=== PATIENT | male | born 1995 | race Caucasian/White ===

== ENCOUNTER 2016-10-17 23:06 | Emergency (ER) | payer BC, OTHER ==
[~2016-10-17] VITALS: Ht 180.3 cm; Wt 65.8 kg
[~2016-10-17 23:06] MED LIST: AMOX500C2 PO; AMOX875T2 PO; CLOT15CR4 TP; DIPH1TAB25 PO; HYDR-757 PO; PERM60CR4 TP; PRD20T PO; SULF-222 PO
--- OUTSIDE RECORDS SUMMARY | 2016-10-17 23:12 | XMS REPORT | Continuity of Care Document ---
Author Author [facility] Organization [facility] Address Unknown Phone Unavailable Care Team Providers [facility] Director Name Role Phone NO, LOCAL PHYSICIAN PCP Unavailable Insurance Providers Payer Name Policy Number Subscriber Name Relationship [employer] [id number] Duran Ortiz 19 Self / Same As Patient Advance Directives Directive Response Recorded Date/Time Advance Directives No 05/11/15 3:27am Resuscitation Status Full Code 05/11/15 3:27am Problems Medical Problems Problem Onset Date Status Abscess Unknown Active Diarrhea Unknown Active Diarrhea Unknown Active Pharyngitis, acute Unknown Active Medications Medication Dose Route Sig Days/Qty Instructions Order Date Discontinued Date Status Amoxicillin 500 Mg PO THREE TIMES A DAY 21 Qty 05/11/15 Active Social History Social History Problem Response Recorded Date/Time Alcohol Use Denies Use 05/11/2015 3:27am Recreational Drug Use No 05/11/2015 3:27am Recent Foreign Travel No 05/11/2015 3:27am Recent Infectious Disease Exposure No 05/11/2015 3:27am Sexually Transmitted Disease No 05/11/2015 3:27am HIV/AIDS No 05/11/2015 3:27am Smoking Status Current Everyday Smoker 05/11/2015 3:27am Query Response Start Date Stop Date Smoking Status Current Everyday Smoker Hospital Discharge Instructions No hospital discharge instructions. Plan of Care No plan of care. Functional Status No functional status results. Allergies, Adverse Reactions, Alerts Allergen Type Severity Reaction Status Last Updated No Known Drug Allergies Active 12/20/14 Immunizations Name Given Type Tetanus Booster (TDap) Less than 5yrs Historical Vital Signs Acute Vital Signs Vital Response Date/Time Temperature (Fahrenheit) 98.0 degrees F (97.6 - 99.5) Temperature (Calculated Celsius) 36.30043 degrees C (36.4 - 37.5) Temperature Source Temporal Pulse Rate (Adolescent 12-19yrs) 72 bpm (56 - 106) Respiratory Rate (Adolescent 12-19yrs) 18 bpm (15 - 20) Blood Pressure / Blood Pressure Systolic (Adolescent 12-19yrs) 119 mm Hg (115 - 120) Pain Pain Intensity 10 Height (Feet) 5 feet Height (Inches) 8 inches Height (Calculated Centimeters) 172.408563 cm Weight (Pounds) 140 pounds Weight (Calculated Kilograms) 63.666401 kilograms Calculated BMI 21.28 Results No known relevant diagnostic tests, laboratory data and/or discharge summary. Procedures No known history of procedures. Encounters Encounter Location Date/Time Departed Emergency Room [facility] 05/11/15 3:20am Recent Diagnosis
[2016-10-17] MEDS ORDERED: RX-ONDANSETRON 4 MG ODT (ZOFRAN) PPK #4 PO STA (23:31)
[2016-10-17] MEDS ORDERED: RX-HYOSCYAMINE 0.125 MG SL (LEVSIN) PPK#6 SL STA (23:31)
[2016-10-17] MEDS ORDERED: HYOS0.1283 SL (23:34)
[2016-10-17] MEDS ORDERED: ONDA4TAB8 PO (23:34)
--- NOTE | 2016-10-17 23:35 | ED GI ---
General Chief Complaint: Abdominal/GI Problems Stated Complaint: SORE THROAT,VOMITING,DIARRHEA Nursing Triage Note: c/o emesis x 2(once early this morning and once on monday) reports diarrhea. reports was sent home from work. patient reports he has been able to eat and drink today without problem Sepsis Screen: No Definite Risk Source of Information: Patient History of Present Illness Time Seen By Provider: 23:20 Initial Comments PT STATES HE HAS BEEN SICK SINCE MONDAY VOMITED X 1 ON MONDAY, AND AGAIN TODAY AROUND NOON BEGAN HAVING DIARRHEA LAST PM AND HAS HAD 10 EPISODES SINCE THEN--NO BLACK/ BLOODY/TARRY STOOLS C/O MID ABDOMINAL PAIN NO FEVER NO URINARY SYMPTOMS C/O SORE THROAT TOLD ME HAS HAS NOT EATEN OR DRANK ANYTHING EXCEPT A LITTLE WATER AND A SODA TODAY--TOLD RN HE HAD BEEN EATING AND DRINKING WELL / NORMAL ALL DAY TODAY PT HAS BEEN AT WORK AT [employer] SINCE 1500 TODAY ( SHIFT ENDS AT 0130) --GOT SENT HOME JUST PRIOR TO ARRIVAL AND IS HERE FOR A WORK NOTE. GIRLFRIEND HAS BEEN ILL WITH THE SAME NO SUSPICIOUS FOODS PCP: NONE Allergies and Home Medications Allergies Coded Allergies: No Known Drug Allergies (Unverified , 12/20/14) Home Medications Hyoscyamine Sulfate 0.125 Mg Tab.subl #10 1-2 TAB SL Q4H Prescribed by: SAHIL OLEARY on 10/17/16 2334 Ondansetron 4 Mg Tab.rapdis #10 4 MG PO Q4H Prescribed by: SAHIL OLEARY on 10/17/16 2334 Review of Systems Constitutional: no symptoms reported Respiratory: No Symptoms Reported Cardiovascular: No Symptoms Reported Gastrointestinal: See HPI Abdominal Pain Diarrhea Nausea Vomiting Genitourinary: No Symptoms Reported Musculoskeletal: no symptoms reported Skin: no symptoms reported Psychiatric/Neurological: No Symptoms Reported Endocrine: No Symptoms Reported Hematologic/Lymphatic: No Symptoms Reported Past Ldtbdkr-Rmuwjz-Rvzghj Hx Patient Social History Alcohol Use: Denies Use Recreational Drug Use: No Smoking Status: Current Everyday Smoker (1 PPD) Type Used: Cigarettes Recent Foreign Travel: No Contact w/Someone Who Travel: No Recent Infectious Disease Expo: No Recent Hopitalizations: No Physical Abuse Screen: No Sexual Abuse: No Immunizations Up To Date Tetanus Booster (TDap): Less than 5yrs PED Vaccines UTD: Yes Seasonal Allergies Seasonal Allergies: No Surgeries HX Surgeries: No Respiratory Hx Respiratory Disorders: No Cardiovascular Hx Cardiac Disorders: No Neurological Hx Neurological Disorders: No Reproductive System Hx Reproductive Disorders: No Sexually Transmitted Disease: No HIV/AIDS: No Genitourinary Hx Genitourinary Disorders: No Gastrointestinal Hx Gastrointestinal Disorders: No Musculoskeletal Hx Musculoskeletal Disorders: No Endocrine Hx Endocrine Disorders: No HEENT HX ENT Disorders: No Cancer Hx Cancer: No Psychosocial Hx Psychiatric Problems: No Integumentary HX Skin/Integumentary Disorder: No Blood Transfusions Hx Blood Disorders: No Adverse Reaction to a Blood Tr: No Family Medical History Significant Family History: No Pertinent Family Hx Physical Exam Vital Signs VS - Last 72 Hours, by Label 10/17/16 23:17 Temp 98.2 Pulse 72 Resp 18 B/P 136/79 Pulse Ox 99 Capillary Refill : Less Than 3 Seconds General Appearance: no apparent distress other (DOES NOT APPEAR ILL OR TO BE IN ANY DISCOMFORT. WALKS UP RIGHT AND MOVES WITHOUT DIFFICULTY) thin HEENT: PERRL/EOMI normal ENT inspection TMs normal pharynx normalNo pharyngeal erythema, No tonsillar exudate Neck: non-tender full range of motion supple normal inspectionNo lymphadenopathy (R) Respiratory: normal breath sounds no respiratory distress no accessory muscle use Cardiovascular: normal peripheral pulses regular rate, rhythm no edema no JVD no murmur Gastrointestinal: normal bowel sounds soft no organomegaly no pulsatile massNo distended, No guarding, No rebound, tenderness (MILD PERIUMBILICAL TENDERNESS)No hernia, No mass Extremities: normal inspection Back: normal inspection no CVA tenderness Neurologic/Psychiatric: desk representative II-XII nml as tested no motor/sensory deficits alert normal mood/affect oriented x 3 Skin: normal color warm/dry Progress/Results/Core Measures Results/Orders My Orders Orders-SAHIL OLEARY DO Rx-Hyoscyamine Tab (Rx-Levsin Sl) (10/17/16 23:31) Rx-Ondansetron Po (Rx-Zofran Po) (10/17/16 23:31) Vital Signs/I&O Vital Sign - Last 12Hours 10/17/16 23:17 Temp 98.2 Pulse 72 Resp 18 B/P 136/79 Pulse Ox 99 Blood Pressure Mean: 98 Progress Note : Progress Note NO SYMPTOMS DURING ER STAY Departure Impression Impression: Primary Impression: Gastroenteritis Disposition: 01 HOME, SELF-CARE Condition: Stable Departure-Patient Inst. Referrals: NO,LOCAL PHYSICIAN (PCP/Family) Primary Care Physician Patient Instructions: Viral Gastroenteritis, Adult (DC) Add. Discharge Instructions: CLEAR LIQUIDS--WATER, BROTH, JELLO, GATORADE BRATS DIET--BANANAS, RICE, APPLESAUCE, TOAST, SALTINES FOLLOW UP WITH OF [facility] IN 1-2 DAYS IF NO BETTER RETURN TO ER IF WORSE All discharge instructions reviewed with patient and/or family. Voiced understanding. Scripts Hyoscyamine Sulfate (Levsin-Sl)0.125 Mg Tab.subl1-2 Tab SL Q4H Abdominal Pain # 10 TAB Prov:SAHIL OLEARY DO 10/17/16 Ondansetron (Zofran Odt)4 Mg Tab.rapdis4 Mg PO Q4H Nausea/Vomiting #10 TAB Prov:SAHIL OLEARY DO 10/17/16 Work/School Note: Local Medical Staff Listing, Work Release Form Date Seen in the Emergency Department: Oct 17, 2016 Return to Work: Oct 18, 2016 Restrictions: No Restrictions SAHIL OLEARY DO Oct 17, 2016 23:34
[2016-10-17 23:37] VITALS: BP 136/79
== END 2016-10-17 23:37 | disposition home or self-care (01) ==
LOC: EDUNIT# 23:06 → ER 23:09
DX: K52.9 Noninfective gastroenteritis and colitis, unspecified (principal); R11.2 Nausea with vomiting, unspecified; F17.210 Nicotine dependence, cigarettes, uncomplicated
CPT/HCPCS: 99283

== ENCOUNTER 2017-03-07 23:24 | Emergency (ER) | payer BC ==
[~2017-03-07] VITALS: Ht 180.3 cm; Wt 65.8 kg
[~2017-03-07 23:24] MED LIST changes: +HYOS0.1283 SL; +ONDA4TAB8 PO
[2017-03-08] MEDS ORDERED: LACTATED RINGERS 1,000 ML IV ONE
[2017-03-08] MEDS ORDERED: FAMOTIDINE 20MG/2ML IV (PEPCID) IV STA
--- NOTE | 2017-03-08 00:29 | ED General ---
General Chief Complaint: Abdominal/GI Problems Stated Complaint: DEHYDRATED Nursing Triage Note: C/O N/V/D AFTER DRINKING ETOH MONDAY NIGHT Nursing Sepsis Screen: No Definite Risk Source of Information: Patient Exam Limitations: No Limitations History of Present Illness Time Seen by Provider: 23:55 Initial Comments Here with report of dizziness and feeling dehydrated after drinking alcohol on Monday night for his birthday. He states that everyone kept buying him drinks and he got pretty drunk that night. He felt bad on Monday. On Monday he went to work and was dehydrated and dizzy and had to go home. He tried to go to work again today and was still dehydrated. He works in a hot environment. He states that he has not been unable to keep things down well since going out on Monday. Denies other specific pain or complaints aside from stomach upset.. Timing/Duration: 2-3 Days Severity: Moderate Modifying Factors: worse with Eating Associated Systoms: No Chest Pain, No Fever/Chills, Loss of Appetite, Nausea/ Vomiting, No Shortness of Air, No Weakness Allergies and Home Medications Allergies Coded Allergies: No Known Drug Allergies (Unverified , 12/20/14) Home Medications No Active Prescriptions or Reported Meds Constitutional: see HPI, No chills, No fever EENTM: no symptoms reported Respiratory: no symptoms reported Cardiovascular: no symptoms reported Gastrointestinal: nausea, vomiting Genitourinary: no symptoms reported Musculoskeletal: no symptoms reported Skin: no symptoms reported Psychiatric/Neurological: See HPI, Denies Weakness, Other (dizziness) All Other Systems Reviewed Negative Unless Noted: Yes Past Aeqvdcl-Mtlcsl-Dnjcgd Hx Patient Social History Alcohol Use: Occasionally Uses Recreational Drug Use: No Smoking Status: Current Everyday Smoker Type Used: Cigarettes Recent Foreign Travel: No Contact w/Someone Who Travel: No Recent Infectious Disease Expo: No Recent Hopitalizations: No Immunizations Up To Date Tetanus Booster (TDap): Less than 5yrs PED Vaccines UTD: Yes Seasonal Allergies Seasonal Allergies: No Surgeries HX Surgeries: No Respiratory Hx Respiratory Disorders: No Cardiovascular Hx Cardiac Disorders: No Neurological Hx Neurological Disorders: No Reproductive System Hx Reproductive Disorders: No Sexually Transmitted Disease: No HIV/AIDS: No Genitourinary Hx Genitourinary Disorders: No Gastrointestinal Hx Gastrointestinal Disorders: No Musculoskeletal Hx Musculoskeletal Disorders: No Endocrine Hx Endocrine Disorders: No HEENT HX ENT Disorders: No Cancer Hx Cancer: No Psychosocial Hx Psychiatric Problems: No Integumentary HX Skin/Integumentary Disorder: No Blood Transfusions Hx Blood Disorders: No Adverse Reaction to a Blood Tr: No Reviewed Nursing Assessment Reviewed/Agree w Nursing PMH: Yes Family Medical History Significant Family History: No Pertinent Family Hx Physical Exam Vital Signs Vital Sign - Last 12Hours 03/07/17 23:34 Temp 97.1 Pulse 73 Resp 18 B/P (MAP) 129/82 Pulse Ox 96 O2 Delivery Room Air Capillary Refill : Less Than 3 Seconds General Appearance: No Apparent Distress, WD/WN HEENT: PERRL/EOMI, Pharynx Normal Neck: Full Range of Motion, Non Tender, Supple Respiratory: Lungs Clear, Normal Breath Sounds Cardiovascular: Regular Rate, Rhythm, No Murmur Gastrointestinal: Non Tender, Soft Back: Normal Inspection, No CVA Tenderness, No Vertebral Tenderness Extremity: Non Tender, No Calf Tenderness Neurologic/Psychiatric: Alert, Oriented x3 Skin: Normal Color, Warm/Dry Progress/Results/Core Measures Results/Orders Lab Results Laboratory Tests Test 03/08/17 00:25 Range/Units White Blood Count 8.3 4.3-11.0 10^3/uL Red Blood Count 5.11 4.35-5.85 10^6/uL Hemoglobin 15.0 13.3-17.7 G/DL Hematocrit 44 40-54 % Mean Corpuscular Volume 87 80-99 FL Mean Corpuscular Hemoglobin 29 25-34 PG Mean Corpuscular Hemoglobin Concent 34 32-36 G/DL Red Cell Distribution Width 12.9 10.0-14.5 % Platelet Count 150 130-400 10^3/uL Mean Platelet Volume 11.8 H 7.4-10.4 FL Neutrophils (%) (Auto) 53 42-75 % Lymphocytes (%) (Auto) 37 12-44 % Monocytes (%) (Auto) 8 0-12 % Eosinophils (%) (Auto) 2 0-10 % Basophils (%) (Auto) 0 0-10 % Neutrophils # (Auto) 4.4 1.8-7.8 X 10^3 Lymphocytes # (Auto) 3.1 1.0-4.0 X 10^3 Monocytes # (Auto) 0.7 0.0-1.0 X 10^3 Eosinophils # (Auto) 0.1 0.0-0.3 10^3/uL Basophils # (Auto) 0.0 0.0-0.1 10^3/uL Sodium Level 142 135-145 MMOL/L Potassium Level 4.1 3.6-5.0 MMOL/L Chloride Level 110 H 98-107 MMOL/L Carbon Dioxide Level 22 21-32 MMOL/L Anion Gap 10 5-14 MMOL/L Blood Urea Nitrogen 18 7-18 MG/DL Creatinine 1.12 0.60-1.30 MG/DL Estimat Glomerular Filtration Rate > 60 BUN/Creatinine Ratio 16 Glucose Level 82 70-105 MG/DL Calcium Level 9.1 8.5-10.1 MG/DL Total Bilirubin 0.4 0.1-1.0 MG/DL Aspartate Amino Transf (AST/SGOT) 14 5-34 U/L Alanine Aminotransferase (ALT/SGPT) 12 0-55 U/L Alkaline Phosphatase 89 40-136 U/L Total Creatine Kinase 149 30-200 U/L Total Protein 6.7 6.4-8.2 G/DL Albumin 4.4 3.2-4.5 G/DL My Orders Orders - VIDHYA RODRIGUEZ MD Cbc With Automated Diff (03/08/17 00:00) Comprehensive Metabolic Panel (03/08/17 00:00) Creatine Kinase (03/08/17 00:00) Saline Lock/Iv-Start (03/08/17 00:00) Lactated Ringers (Lr 1000 Ml Iv Solution (03/08/17 00:00) Famotidine Injection (Pepcid Injection) (03/08/17 00:00) Medications Given in ED Current Medications Medications Dose Ordered Sig/Miguelito Route Start Time Stop Time Status Last Admin Dose Admin Lactated Ringer's 1,000 ml @ 0 mls/hr Q0M ONCE IV 03/08/17 00:00 03/08/17 00:03 DC 03/08/17 00:26 0 MLS/HR Vital Signs/I&O Vital Sign - Last 12Hours 03/07/17 23:34 Temp 97.1 Pulse 73 Resp 18 B/P (MAP) 129/82 Pulse Ox 96 O2 Delivery Room Air Blood Pressure Mean: 98 Progress Note : Progress Note Seen and evaluated. IV, labs, LR 1 L bolus and Pepcid 20 mg IV ordered. Monitor patient. 0108: Improved overall. Discharged home with return precautions. Patient verbalize understanding instructions and agreement with plan. Departure Impression Impression: Primary Impression: Dehydration Additional Impression: Nausea and vomiting Qualified Codes: R11.2 - Nausea with vomiting, unspecified Disposition: HOME, SELF-CARE Condition: Improved Departure-Patient Inst. Decision time for Depature: 01:08 Referrals: NO,LOCAL PHYSICIAN (PCP/Family) Primary Care Physician Patient Instructions: Dehydration, Adult (DC), Nausea and Vomiting, Adult (DC) Add. Discharge Instructions: All discharge instructions reviewed with patient and/or family. Voiced understanding. Clear liquid diet for the next 12 hours and then advance as tolerated. Avoid alcohol. You may take Pepcid or the generic famotidine 20 mg once or twice daily for the next several days and then as needed. Return for worse pain, weakness, breathing problems, vomiting or other concerns as needed. Scripts No Active Prescriptions or Reported Meds Work/School Note: Work Release Form Date Seen in the Emergency Department: Mar 07, 2017 Return to Work: Mar 08, 2017 Restrictions: No Restrictions VIDHYA RODRIGUEZ MD Mar 08, 2017 00:28
[2017-03-08 00:36] LABS: BASOPHILS % (AUTO) 0 % (0-10); EOSINOPHILS # (AUTO) 0.1 10^3/uL (0.0-0.3); EOSINOPHILS % (AUTO) 2 % (0-10); LYMPHOCYTES # (AUTO) 3.1 X 10^3 (1.0-4.0); LYMPHOCYTES % (AUTO) 37 % (12-44); MEAN CORPUSCULAR HEMOGLOBIN 29 PG (25-34); MEAN CORPUSCULAR HGB CONC 34 G/DL (32-36); MEAN CORPUSCULAR VOLUME 87 FL (80-99); MEAN PLATELET VOLUME 11.8 FL (7.4-10.4); MONOCYTES # (AUTO) 0.7 X 10^3 (0.0-1.0); MONOCYTES % (AUTO) 8 % (0-12); NEUTROPHILS # (AUTO) 4.4 X 10^3 (1.8-7.8); NEUTROPHILS % (AUTO) 53 % (42-75); PLATELET COUNT 150 10^3/uL (130-400); RED BLOOD COUNT 5.11 10^6/uL (4.35-5.85); RED CELL DISTRIBUTION WIDTH 12.9 % (10.0-14.5); WHITE BLOOD COUNT 8.3 10^3/uL (4.3-11.0)
[2017-03-08 00:53] LABS: ALANINE AMINOTRANSFERASE 12 U/L (0-55); ALBUMIN 4.4 G/DL (3.2-4.5); ANION GAP 10 MMOL/L (5-14); ASPARTATE AMINO TRANSFERASE 14 U/L (5-34); BILIRUBIN,TOTAL 0.4 MG/DL (0.1-1.0); BLOOD UREA NITROGEN 18 MG/DL (7-18); BUN/CREATININE RATIO 16; CALCIUM 9.1 MG/DL (8.5-10.1); CARBON DIOXIDE 22 MMOL/L (21-32); CHLORIDE 110 MMOL/L (98-107); CREATINE KINASE 149 U/L (30-200); CREATININE SERUM 1.12 MG/DL (0.60-1.30); GFR ESTIMATED > 60; GLUCOSE 82 MG/DL (70-105); POTASSIUM 4.1 MMOL/L (3.6-5.0); SODIUM 142 MMOL/L (135-145); TOTAL PROTEIN 6.7 G/DL (6.4-8.2)
[2017-03-08 01:09] VITALS: BP 118/57
== END 2017-03-08 01:08 | disposition home or self-care (01) ==
LOC: EDUNIT# 23:24 → ER 23:26
DX: E86.0 Dehydration (principal); R11.2 Nausea with vomiting, unspecified; F17.210 Nicotine dependence, cigarettes, uncomplicated; Z72.89 Other problems related to lifestyle
CPT/HCPCS: 36415; 80053; 82550; 85025

== ENCOUNTER → 2018-03-02 | Outpatient (CLI) | payer BC ==
--- NOTE | 2018-03-02 18:02 | Diagnostic Imaging Report ---
PROCEDURE: CT abdomen and pelvis without contrast. TECHNIQUE: Multiple contiguous axial images were obtained through the abdomen and pelvis without the use of intravenous contrast. INDICATION: Hematuria and lumbago. COMPARISON: None. FINDINGS: The lung bases are clear. The liver appears unremarkable. The gallbladder appears normal. There is no biliary dilatation. The pancreas, spleen, and adrenal glands appear unremarkable. The kidneys and ureters appear unremarkable. No urinary tract stone or obstructive uropathy is seen. There is prominent diffuse thickening of the bladder wall with some hazy stranding in the soft tissue adjacent to the bladder, highly suggestive of cystitis. Correlate clinically. The appendix appears normal. There is no evidence of bowel obstruction. There is no free fluid, free air, or adenopathy. The abdominal aorta appears normal in caliber. The osseous structures appear unremarkable. IMPRESSION: 1. The bladder is abnormal in appearance suggestive of cystitis. Correlate clinically. 2. No evidence of urinary tract calcification or obstructive uropathy. 3. No additional abnormality is demonstrated. Dictated by: Dictated on workstation # [id number]
[2018-03-02 18:21] LABS: BASOPHILS % (AUTO) 0 % (0-10); EOSINOPHILS # (AUTO) 0.1 10^3/uL (0.0-0.3); EOSINOPHILS % (AUTO) 1 % (0-10); HEMATOCRIT 44 % (40-54); HEMOGLOBIN 14.9 G/DL (13.3-17.7); LYMPHOCYTES # (AUTO) 1.8 X 10^3 (1.0-4.0); LYMPHOCYTES % (AUTO) 21 % (12-44); MEAN CORPUSCULAR HEMOGLOBIN 30 PG (25-34); MEAN CORPUSCULAR HGB CONC 34 G/DL (32-36); MEAN CORPUSCULAR VOLUME 87 FL (80-99); MEAN PLATELET VOLUME 11.7 FL (7.4-10.4); MONOCYTES % (AUTO) 11 % (0-12); NEUTROPHILS # (AUTO) 5.8 X 10^3 (1.8-7.8); NEUTROPHILS % (AUTO) 67 % (42-75); PLATELET COUNT 140 10^3/uL (130-400); RED BLOOD COUNT 5.02 10^6/uL (4.35-5.85); RED CELL DISTRIBUTION WIDTH 12.6 % (10.0-14.5); WHITE BLOOD COUNT 8.6 10^3/uL (4.3-11.0)
[2018-03-02 18:39] LABS: ALANINE AMINOTRANSFERASE 18 U/L (0-55); ALBUMIN 4.3 GM/DL (3.2-4.5); ALKALINE PHOSPHATASE 89 U/L (40-136); BILIRUBIN,TOTAL 0.5 MG/DL (0.1-1.0); BUN/CREATININE RATIO 14; CALCIUM 9.3 MG/DL (8.5-10.1); CARBON DIOXIDE 24 MMOL/L (21-32); CHLORIDE 109 MMOL/L (98-107); CREATININE SERUM 0.87 MG/DL (0.60-1.30); GFR ESTIMATED > 60; GLUCOSE 89 MG/DL (70-105); POTASSIUM 4.5 MMOL/L (3.6-5.0); SODIUM 142 MMOL/L (135-145); TOTAL PROTEIN 6.9 GM/DL (6.4-8.2)
== END ==
LOC: RAD 17:22
PROVIDERS: ATTEND Nurse Practitioner Family
DX: R31.9 Hematuria, unspecified (principal); M54.5 Low back pain; R50.9 Fever, unspecified
CPT/HCPCS: 36415; 74176; 80053; 85025; 86141; 87088; 87491; 87591

== ENCOUNTER 2018-04-02 18:20 | Emergency (ER) | payer BC ==
[~2018-04-02] VITALS: Ht 180.3 cm; Wt 65.8 kg
[2018-04-02] MEDS ORDERED: LACTATED RINGERS 1,000 ML IV ONE (18:36)
[2018-04-02] MEDS ORDERED: ONDANSETRON 4 MG/2 ML (SDV) Z0FRAN ONE (18:36)
[2018-04-02] MEDS ORDERED: ONDANSETRON 4 MG/2 ML (SDV) Z0FRAN IVP ONE (18:45)
[2018-04-02] MEDS ORDERED: LACTATED RINGERS 1,000 ML IV SCH (18:45)
--- NOTE | 2018-04-02 18:46 | ED General ---
General Stated Complaint: VOMITING/POSS DEHYDRATED Source of Information: Patient Exam Limitations: No Limitations History of Present Illness Date Seen by Provider: Apr 02, 2018 Time Seen by Provider: 18:42 Initial Comments To ER with c/o nausea vomiting diaphoresis and weakness. This started as he was walking into work this afternoon at [employer] where there is no air conditioning. Timing/Duration: 1-2 Days Severity: Moderate Associated Systoms: Diaphoresis, Nausea/Vomiting Allergies and Home Medications Allergies Coded Allergies: No Known Drug Allergies (Unverified , 12/20/14) Home Medications No Active Prescriptions or Reported Meds Patient Home Medication List Home Medication List Reviewed: Yes Review of Systems Constitutional: see HPI EENTM: see HPI Respiratory: no symptoms reported Cardiovascular: no symptoms reported Genitourinary: no symptoms reported Musculoskeletal: no symptoms reported Skin: no symptoms reported Psychiatric/Neurological: No Symptoms Reported Hematologic/Lymphatic: No Symptoms Reported Immunological/Allergic: no symptoms reported Past Wjflevs-Wygklu-Oyzclh Hx Patient Social History Alcohol Beverage of Choice: Beer Type Used: Cigarettes Recent Foreign Travel: No Contact w/Someone Who Travel: No Recent Hopitalizations: No Immunizations Up To Date Tetanus Booster (TDap): Less than 5yrs PED Vaccines UTD: Yes Seasonal Allergies Seasonal Allergies: No Past Medical History Surgeries: No Respiratory: No Cardiac: No Neurological: No Reproductive Disorders: No Sexually Transmitted Disease: No HIV/AIDS: No Genitourinary: No Gastrointestinal: No Musculoskeletal: No Endocrine: No HEENT: No Cancer: No Psychosocial: No Integumentary: No Blood Disorders: No Adverse Reaction/Blood Tranf: No Family Medical History No Pertinent Family Hx Physical Exam Vital Signs Capillary Refill : General Appearance: No Apparent Distress, WD/WN Eyes: Bilateral Eye Normal Inspection, Bilateral Eye PERRL, Bilateral Eye EOMI HEENT: PERRL/EOMI, TMs Normal Neck: Full Range of Motion, Normal Inspection Respiratory: No Accessory Muscle Use, No Respiratory Distress Cardiovascular: Regular Rate, Rhythm, Normal Peripheral Pulses Gastrointestinal: Normal Bowel Sounds, Non Tender, Soft Extremity: Normal Capillary Refill, Normal Inspection Neurologic/Psychiatric: Alert, Oriented x3, No Motor/Sensory Deficits Skin: Normal Color, Warm/Dry Progress/Results/Core Measures Suspected Sepsis SIRS Temperature: Pulse: Respiratory Rate: Blood Pressure / Mean: Results/Orders My Orders Orders - BELL,PETER J PROGRAM ADMIN Ondansetron Injection (Zofran Injectio (04/02/18 18:36) Lactated Ringers (Lr 1000 Ml Iv Solution (04/02/18 18:36) Lr 1000 Ml (04/02/18 18:45) Ondansetron Injection (Zofran Injectio (04/02/18 18:45) Cbc With Automated Diff (04/02/18 18:40) Creatine Kinase (04/02/18 18:40) Comprehensive Metabolic Panel (04/02/18 18:40) Ua Culture If Indicated (04/02/18 18:40) Iv Heplock-Insert (Order) (04/02/18 18:40) Vital Signs/I&O Capillary Refill : Departure Impression Primary Impression: Heat exhaustion Disposition: 01 HOME, SELF-CARE Condition: Stable Departure-Patient Inst. Decision time for Depature: 18:45 Referrals: CHANDRA TOLLIVER DO (PCP/Family) Primary Care Physician Patient Instructions: Heat Exhaustion and Heat Stroke (DC) Add. Discharge Instructions: 1. Drink plenty of fluids, Gatorade or Pedialyte is a great choice. Stay inside the air conditioning for the rest of today. Follow-up with your doctor next week. Scripts No Active Prescriptions or Reported Meds Work/School Note: Work Release Form Date Seen in the Emergency Department: Apr 02, 2018 Return to Work: Apr 03, 2018 MONSE BELL APRN Apr 02, 2018 18:46
[2018-04-02 18:51] LABS: BASOPHILS % (AUTO) 0 % (0-10); EOSINOPHILS # (AUTO) 0.1 10^3/uL (0.0-0.3); EOSINOPHILS % (AUTO) 1 % (0-10); HEMATOCRIT 45 % (40-54); LYMPHOCYTES # (AUTO) 2.1 X 10^3 (1.0-4.0); LYMPHOCYTES % (AUTO) 22 % (12-44); MEAN CORPUSCULAR HEMOGLOBIN 30 PG (25-34); MEAN CORPUSCULAR HGB CONC 35 G/DL (32-36); MEAN CORPUSCULAR VOLUME 86 FL (80-99); MEAN PLATELET VOLUME 12.4 FL (7.4-10.4); MONOCYTES # (AUTO) 0.6 X 10^3 (0.0-1.0); MONOCYTES % (AUTO) 7 % (0-12); NEUTROPHILS # (AUTO) 6.7 X 10^3 (1.8-7.8); NEUTROPHILS % (AUTO) 70 % (42-75); PLATELET COUNT 143 10^3/uL (130-400); RED BLOOD COUNT 5.28 10^6/uL (4.35-5.85); RED CELL DISTRIBUTION WIDTH 12.5 % (10.0-14.5); WHITE BLOOD COUNT 9.5 10^3/uL (4.3-11.0)
[2018-04-02 18:53] LABS: BILIRUBIN,URINE NEGATIVE (NEGATIVE); CLARITY,URINE CLEAR; COLOR,URINE YELLOW; GLUCOSE, URINE (UA) NEGATIVE (NEGATIVE); KETONES,URINE NEGATIVE (NEGATIVE); LEUKOCYTE ESTERASE ,URINE NEGATIVE (NEGATIVE); NITRITE,URINE NEGATIVE (NEGATIVE); PH,URINE 8 (5-9); PROTEIN,URINE NEGATIVE (NEGATIVE); UROBILINOGEN,URINE NORMAL (NORMAL)
[2018-04-02 19:01] LABS: WBC,URINE RARE /HPF
[2018-04-02 19:02] LABS: BACTERIA,URINE NEGATIVE /HPF
[2018-04-02 19:07] LABS: ALANINE AMINOTRANSFERASE 10 U/L (0-55); ALBUMIN 4.6 GM/DL (3.2-4.5); ALKALINE PHOSPHATASE 113 U/L (40-136); BILIRUBIN,TOTAL 0.6 MG/DL (0.1-1.0); BUN/CREATININE RATIO 8; CALCIUM 9.9 MG/DL (8.5-10.1); CARBON DIOXIDE 22 MMOL/L (21-32); CHLORIDE 111 MMOL/L (98-107); CREATINE KINASE 105 U/L (30-200); CREATININE SERUM 1.04 MG/DL (0.60-1.30); GFR ESTIMATED > 60; GLUCOSE 90 MG/DL (70-105); POTASSIUM 4.1 MMOL/L (3.6-5.0); SODIUM 141 MMOL/L (135-145); TOTAL PROTEIN 7.1 GM/DL (6.4-8.2)
[2018-04-02 19:12] VITALS: BP 128/71
== END 2018-04-02 19:12 | disposition home or self-care (01) ==
LOC: EDUNIT# 18:20 → ER 18:22
DX: T67.5XXA Heat exhaustion, unspecified, initial encounter (principal)
CPT/HCPCS: 36415; 80053; 81000; 82550; 85025; 96374